=== PATIENT | male | born 1935 | race Caucasian/White ===

== ENCOUNTER 2018-05-06 08:54 | Day surgery (SDC) | payer BC, OTHER ==
[2018-05-06] MEDS: GABAPENTIN 300 MG CAP PO (09:52)
[2018-05-06] MEDS: traMADol 50 MG TAB PO (09:52)
[2018-05-06] MEDS: DEXAMETHASONE 1 MG TAB PO (09:52)
[2018-05-06] MEDS ORDERED: ROPIVACAINE 0.5 % 30 ML VIAL (09:57)
[2018-05-06] MEDS ORDERED: CEFAZOLIN 1 GM INJ (09:57)
[2018-05-06] MEDS ORDERED: PROPOFOL 20 ML (09:57)
[2018-05-06] MEDS ORDERED: LIDOCAINE 2% (SDV) 5 ML INJ (09:57)
[2018-05-06] MEDS ORDERED: EPHEDrine SULFATE 50 MG/5 ML SYG (11:29)
[2018-05-06] MEDS ORDERED: ATROPINE 1 MG/10 ML SYRINGE (11:29)
[2018-05-06] MEDS: TRANEXAMIC ACID 1,000 MG in DEXTROSE 5% 100 ML IVPB ×2 (11:30→11:51)
[2018-05-06] MEDS ORDERED: ONDANSETRON 4 MG INJ (12:31)
== END 2018-05-06 15:26 | disposition home or self-care (01) ==
LOC: SDS 08:54
DX: M75.101 Unspecified rotator cuff tear or rupture of right shoulder, not specified as traumatic (principal); M19.011 Primary osteoarthritis, right shoulder; S43.491A Other sprain of right shoulder joint, initial encounter; S46.211A Strain of muscle, fascia and tendon of other parts of biceps, right arm, initial encounter; E11.9 Type 2 diabetes mellitus without complications; E78.2 Mixed hyperlipidemia; I10 Essential (primary) hypertension; K57.30 Diverticulosis of large intestine without perforation or abscess without bleeding; X58.XXXA Exposure to other specified factors, initial encounter
CPT/HCPCS: 29823; 82962